=== PATIENT | male | born 1960 | race Caucasian/White ===

== ENCOUNTER 2017-10-04 06:30 | Day surgery (SDC) | payer OTHER ==
[~2017-10-04 06:30] MED LIST: AMOX1TAB12 PO; CATAFLAM50 MG PO; CIPRO500 MG PO; IMODIUM A-D2 MG PO; INTESTINEX1 CA1 PO; OXYC1TAB9 PO
== END 2017-10-04 11:05 | disposition home or self-care (01) ==
LOC: AMB-ENDOS 06:30
DX: C20 Malignant neoplasm of rectum (principal)